=== PATIENT | female | born 2005 | race Two or more races ===

== ENCOUNTER 2024-12-27 13:34 | Outpatient (CLI) | payer OTHER ==
[2024-12-27 14:05] LABS: Basophils # (auto) 0 10 ^3/uL (0-0.2); Basophils % (auto) 0.3 % (0.0-2.0); Eosinophils # (auto) 0.1 10 ^3/uL (0-0.8); Eosinophils % (auto) 1.8 % (0.0-7.0); Hematocrit 42.5 % (36.0-46.0); Hemoglobin 14.5 g/dL (12.2-16.2); Lymphocytes # (auto) 2.2 10 ^3/uL (0.4-5.4); Lymphocytes % (auto) 30.8 % (10.0-50.0); Mean Corpuscular Hemoglobin 29.7 pg (28.0-32.0); Mean Corpuscular Hgb Conc. 34.2 g/dL (32.0-36.0); Mean Corpuscular Volume 86.9 fL (80.0-100.0); Monocytes # (auto) 0.4 10 ^3/uL (0-1.3); Monocytes % (auto) 6.2 % (0.0-12.0); Neutrophils # (auto) 4.2 10 ^3/uL (1.6-8.6); Neutrophils % (auto) 60.9 % (37.0-80.0); Nucleated Red Blood Cells % 0.1 %; Platelet Count (auto) 322 10^3/uL (140-450); Red Blood Cells 4.89 10^6/uL (4.0-5.20); Red Cell Distribution Width 12.9 % (11.8-14.3)
[2024-12-27 14:20] LABS: Urine Bacteria FEW /hpf (None Seen); Urine Blood 3+ /uL (Negative); Urine Clarity Turbid (Clear); Urine Color Yellow (Yellow); Urine Mucus FEW (None Seen); Urine Protein, UAD TRACE (Negative); Urine Specific Gravity 1.031 (1.001-1.035); Urine Squamous Epithelial Cell MOD /hpf (<5); Urine Urobilinogen 2 mg/dL (Negative); Urine WBC 19 /HPF (0-5)
[2024-12-27 14:40] LABS: Triglycerides 150 mg/dL (< 150)
[2024-12-27 14:41] LABS: LDL Cholesterol 93 mg/dL (< 100)
[2024-12-27 14:42] LABS: Cholesterol 162 mg/dL (< 200); HDL Cholesterol 54 mg/dL (40-59)
[2024-12-28 08:07] LABS: Immunoglobulin G, Serum 1230 mg/dL (586-1602); Mumps IgG Antibody 76.6 AU/mL (Immune >10.9); Varicella Zoster IgG Antibody Non Reactive (Non Reactive)
[2025-01-01 19:07] LABS: Diptheria Antitoxoid Ab 1.08 IU/mL (<0.10); QuantiFERON-TB Gold Plus Negative (Negative); Tetanus Antitoxoid IgG Ab 0.94 IU/mL (<0.10)
== END 2024-12-27 17:00 | disposition home or self-care (01) ==
LOC: LAB 13:34
PROVIDERS: ATTEND Internal Medicine
DX: Z01.84 Encounter for antibody response examination (principal); Z13.6 Encounter for screening for cardiovascular disorders; Z13.1 Encounter for screening for diabetes mellitus; Z13.29 Encounter for screening for other suspected endocrine disorder; Z11.59 Encounter for screening for other viral diseases
CPT/HCPCS: 36415; 80061; 81001; 82306; 82607; 82784; 83036; 84443; 85025; 86706; 86735; 86762; 86765; 86787

== ENCOUNTER 2025-02-28 14:10 | Outpatient (CLI) | payer OTHER | END 2025-02-28 17:00 | disposition home or self-care (01) | LOC: LAB 14:10 | PROVIDERS: ATTEND Internal Medicine | DX: Z11.3 Encounter for screening for infections with a predominantly sexual mode of transmission (principal) | CPT/HCPCS: 86787 ==